=== PATIENT | female | born 1950 | race Caucasian/White ===

== ENCOUNTER 2021-05-28 13:28 | Outpatient (CLI) | payer MEDICARE, SELFPAY ==
--- NOTE | 2021-05-28 13:41 | MM_ITS ---
WS: [id number] BILATERAL DIGITAL SCREENING MAMMOGRAPHY WITH CAD CLINICAL INFORMATION: SCREENING HISTORY: Screening mammogram. No current complaints. COMPARISON: . TECHNIQUE: Bilateral CC and MLO views. FINDINGS: The breasts are composed of heterogeneous fibroglandular density tissue, which can limit the detectio n of small underlying mass lesions. No suspicious mass, asymmetry, calcifications, or architectural d istortion. No evidence of malignancy. MM/[place] [id number] IMPRESSION: BI-RADS: 1-Negative FOLLOW UP: 1 Year Follow-up Recommend return to annual screening mammography.
== END 2021-05-28 13:29 | disposition home or self-care (01) ==
LOC: RADSHAW 13:35
PROVIDERS: PCP Family Medicine; Visit Provider Family Medicine
DX: Z12.31 Encounter for screening mammogram for malignant neoplasm of breast (principal)
CPT/HCPCS: 77067

== ENCOUNTER → 2024-12-04 11:57 | Outpatient (BNVA) | payer MEDICARE, SELFPAY | PROVIDERS: PCP Family Medicine; Visit Provider Nurse Practitioner | DX: R07.9 Chest pain, unspecified (principal) | CPT/HCPCS: 80053; 80061; 85025 ==

== ENCOUNTER → 2024-12-11 09:37 | Outpatient (BNVA) | payer MEDICARE, SELFPAY | PROVIDERS: Visit Provider Nurse Practitioner | DX: M25.552 Pain in left hip (principal) | CPT/HCPCS: 73502 ==

== ENCOUNTER → 2025-01-10 09:35 | Outpatient (BNVA) | payer MEDICARE, SELFPAY | PROVIDERS: PCP Nurse Practitioner; Referring Provider Nurse Practitioner; Visit Provider Internal Medicine Cardiovascular Disease | DX: R06.09 Other forms of dyspnea (principal); R07.89 Other chest pain; R42 Dizziness and giddiness; E78.5 Hyperlipidemia, unspecified; R00.1 Bradycardia, unspecified; Z87.891 Personal history of nicotine dependence; R07.9 Chest pain, unspecified | CPT/HCPCS: 36415; 83880; 93005; 99204 ==

== ENCOUNTER 2025-02-11 07:22 | Outpatient (CLI) | payer MEDICARE, SELFPAY ==
--- NOTE | 2025-02-11 | ECG_ITS ---
[employer] Test Date: 2025-02-11 Pat Name: Maliha Alexander Department: Room: Gender: Female Metrologist: : 1950 Requested By: Colin Mcdonnell Order Number: [id number] Baca MD: Colin Mcdonnell M.D. Interpretive Statements Procedure: The patient was exercised by the Nikolas protocol. Vital signs and ECG findings: Baseline blood pressure was 160/86 with a heart rate of 58 bpm. The patient exercised for total of 7 minutes and 30 seconds reaching a maximum heart rate of 132 bpm which is 89% of maximal predicted heart rate. Patient achieved 10.2 METS. Above average exercise capacity for age. Maximum blood pressure was 158/86. At the end of recovery blood pressure was 163/70 with a heart rate of 74 bpm. Baseline EKG showed sinus bradycardia with a heart rate of 58 bpm nonspecific T wave flattening. There were no ST or T wave changes from baseline or arrhythmias with exercise. CONCLUSION: 1. Exercise capacity was mildly above average for age. 2. Heart rate response was appropriate. 3. Blood pressure response was appropriate. 4. No symptoms of angina during exercise. 5. Electrocardiogram portion of the stress test without evidence of ischemia. 6. Nuclear scan will be documented separately. Electronically Signed On 02-11-2025 22:21:19 CDT by Colin Mcdonnell M.D. [email or web address]
[2025-02-11 07:45] VITALS: BMI 22.3
--- NOTE | 2025-02-11 07:48 | NMCV_ITS ---
NM antonio perf SPECT r/s* [id number] Maliha Alexander Age: 74 Gender: F : 1950 Exam Date: 02/11/2025 08:16 Ordering Phys: Colin Mcdonnell MD ([email or web address]) Technologist: ANDREW Kaminski Exam Location: [facility] Indications: cp STRESS TEST Please see separate stress test report in [facility] for full findings IMAGE PROTOCOL Rest/Stress 1 Exercise Day Radiopharmaceutical Dose (mCi) Administration Site Administered by Rest: Tc-99m 10.7 IV Olya Villatoro, METER REPAIRER HELPER Sestamibi Stress:Tc-99m 32.8 IV Olya Villatoro, METER REPAIRER HELPER Sestamibi Rest: 11-Feb-2025 60 Discovery 630 Stress: 11-Feb-2025 15 Discovery 630 Radiopharmaceutical was injected at 85 % maximum heart rate. Images obtained in supine and prone position. SPECT RESULTS Technical Quality: Good Raw Data Analysis: Normal Image Corrections: No attenuation or motion correction applied Summed Stress Score: 4 Summed Rest Score: 2 Summed Difference Score: 2 PERFUSION FINDINGS There is a medium sized area of mildly decreased tracer counts in the mid and basal inferolateral wall that reverses on the resting images consistent with reversible ischemia. FUNCTIONAL RESULTS (calculated via Gated SPECT) Stress Image LV EF (%): 73 Stress EDV (mL):71 TID: 1.05 Stress ESV (mL):19 FUNCTIONAL FINDINGS: There is normal left ventricular systolic function. EF 73%. IMPRESSIONS 1. Medium sized area of mild reversible ischemia in the inferolateral wall. 2. There is normal left ventricular systolic function. EF 73%. Colin Mcdonnell MD, FACC (Electronically Signed) Final Date: 11 February 2025 13:28 S
[2025-02-11 09:08] VITALS: BP 163/70; PULSE 75
--- NOTE | 2025-02-11 12:45 | USCV_ITS ---
Maliha Alexander Age: 74 Gender: F : 1950 Exam Date: 02/11/2025 07:52 Ordering Phys: Colin Mcdonnell MD ([email or web address]) Technologist: Exam Location: [facility] Indication: sob cp BP: 120 / 70 HR: 65 Rhythm: Sinus Technical Quality: MEASUREMENTS (Male / Female) Normal Values 2D ECHO LV Diastolic Diameter PLAX 4.6 cm 4.2 - 5.9 / 3.9 - 5.3 cm IVS Diastolic Thickness 1.1 cm 0.6 - 1.0 / 0.6 - 0.9 cm IVS Systolic Thickness 1.7 cm LVPW Diastolic Thickness 1.0 cm 0.6 - 1.0 / 0.6 - 0.9 cm LVPW Systolic Thickness 1.5 cm LVOT Diameter 2.1 cm LV Ejection Fraction 2D Teich 66.6 % LV Ejection Fraction MOD 4C 67.1 % LV Ejection Fraction MOD 2C 71.2 % LV Ejection Fraction 2C AL 71.4 % LA Diameter 3.6 cm RA Systolic Volume 4C AL 22.6 ml RA Systolic Volume 4C MOD 21.2 ml LA Sys Volume AL 42.4 cm cubed LA Sys Volume Index AL 27.2 cm cubed/m squared Aorta at Sinotubular Diameter 2.2 cm IVC Diameter 1.7 cm M-MODE LA Ao Ratio MM 1.6 AV Cusp Separation MM 2.2 cm DOPPLER AV Peak Velocity 116.0 cm/s LVOT Peak Velocity 86.0 cm/s AV Area Cont Eq vti 2.0 cm squared AV Area Cont Eq pk 2.5 cm squared MV Peak Velocity 118.0 cm/s MV Area PHT 6.2 cm squared Mitral E to A Ratio 1.0 TV Peak Velocity 157.5 cm/s TR Peak Velocity 234.0 cm/s TR Peak Gradient 21.9 mmHg TV Peak E Velocity 74.0 cm/s PV Peak Velocity 133.0 cm/s FINDINGS Left Ventricle Normal left ventricular size, systolic function and wall thickness with no regional wall motion abnormality. Left ventricular ejection fraction is 67%. Normal left ventricular diastolic function. Right Ventricle Normal right ventricular size and systolic function. Right Atrium Normal right atrial size. Left Atrium Normal left atrial size. IA Septum Normal appearance of the interatrial septum. Mitral Valve Normal mitral valve structure. No mitral valve stenosis. Mild regurgitation. Aortic Valve Normal aortic valve structure. No aortic valve stenosis or regurgitation. Tricuspid Valve Normal tricuspid valve structure. No tricuspid valve stenosis. Mild regurgitation. Normal pulmonary pressure. Pulmonic Valve Normal pulmonic valve structure. No pulmonic valve stenosis or regurgitation. Pericardium No pericardial effusion. Aorta Normal diameter of the aortic root and ascending thoracic aorta. IVC Normal IVC diameter. CONCLUSIONS Normal left ventricular size, systolic function and wall thickness with no regional wall motion abnormality. Left ventricular ejection fraction is 67%. Normal left ventricular diastolic function. Normal right ventricular size and systolic function. Mild mitral valve regurgitation Mild tricuspid valve regurgitation Normal pulmonary pressure. Colin Mcdonnell MD, FACC (Electronically Signed) Final Date: 15 February 2025 17:02 S
== END 2025-02-11 07:23 | disposition home or self-care (01) ==
LOC: CDL 07:26
PROVIDERS: PCP Nurse Practitioner; Visit Provider Internal Medicine Cardiovascular Disease
DX: R07.9 Chest pain, unspecified (principal); I99.8 Other disorder of circulatory system; I34.0 Nonrheumatic mitral (valve) insufficiency; I36.1 Nonrheumatic tricuspid (valve) insufficiency
CPT/HCPCS: 36415; 78452; 93017; 93306; A9500

== ENCOUNTER 2025-02-18 10:15 | Outpatient (CLI) | payer MEDICARE, SELFPAY ==
[2025-02-18 11:45] LABS: Hematocrit 40.5 % (36-47); Hemoglobin 13.30 g/dL (11.27-16.99); Mean Corpuscular HGB Conc 32.8 g/dL (30-55); Mean Corpuscular Hemoglobin 31.3 pg (27-33); Mean Corpuscular Volume 95.3 fl (85-98); Nucleated Red Blood Cells % 0 %; Platelet Count 317 10^3/cmm (157-399); Red Blood Count 4.25 10^6/uL (3.85-5.65); White Blood Count 5.94 10^3/uL (3.29-11.43)
[2025-02-18 12:00] LABS: INR 0.84 (0.83-1.21)
[2025-02-18 12:07] LABS: Anion Gap 14.2 (5-19); Blood Urea Nitrogen 12 mg/dL (8-23); Calcium 9.8 mg/dL (8.5-10.5); Carbon Dioxide 28 mmol/L (22-29); Chloride 101 mmol/L (98-107); Glucose 89 mg/dL (65-115); Osmolality Calculated 287 mOsm/kg (285-295); Potassium 4.2 mmol/L (3.5-5.1); Sodium 139 mmol/L (136-145)
== END 2025-02-18 10:16 | disposition home or self-care (01) ==
PROVIDERS: PCP Nurse Practitioner; Visit Provider Internal Medicine Cardiovascular Disease
DX: R00.1 Bradycardia, unspecified (principal); R07.9 Chest pain, unspecified; R58 Hemorrhage, not elsewhere classified
CPT/HCPCS: 36415; 80048; 85025; 85610

== ENCOUNTER → 2025-02-28 11:04 | Outpatient (BNVA) | payer MEDICARE, SELFPAY | PROVIDERS: PCP Nurse Practitioner; Visit Provider Nurse Practitioner | DX: R10.9 Unspecified abdominal pain (principal) | CPT/HCPCS: 81000; 87086 ==

== ENCOUNTER 2025-03-04 05:49 | Outpatient (CLI) | payer MEDICARE, SELFPAY ==
[2025-03-04] VITALS (10 sets, daily range): BP systolic 124–181; BP diastolic 69–89; PULSE 62–76; RESP 14–24; TEMP 36.7; O2SAT 92–99; BMI 22.8
--- NOTE | 2025-03-04 06:00 | XACV_ITS ---
Exam Room: 2 Ht: 157 cm Wt: 57 kg BSA: 1.58 m2 Gender: Female : 1950 Any Known Allergies: Other Exam Priority: Routine Procedure(s): Procedure Description: Diagnostic procedure Procedure Description: Left Heart Catheterization Procedure Description: Left ventriculography Procedure Description: Coronary Angiography Renetta MORALEZ; Diagnostic Cath Status: Elective Diagnostic Findings * No disease noted in the Left Main, Left Anterior Descending, Right, or Circumflex coronary arteries. * Coronary angiography shows right dominance. Conclusions 1. Left main normal LAD normal LCx nondominant but normal RCA dominant vessel and normalVentricle ejection fraction 60%. No wall motion abnormality Indication: Abnormal stress test. 2. No disease noted in the Left Main, Left Anterior Descending, Right, or Circumflex coronary arteries. 3. All hayes are normal. 4. Normal left ventricular systolic function. Ejection fraction of 60%. Recommendations * Continue current medical management and risk factor modification. Diagnostic RX Recommendation: medical therapy and/or counseling Ventriculography Ejection Fraction: 60.0 % Pressures Phase:Rest AO : 106 / 63 ( 83 ) @ 8:09:00 AM 111 / 64 ( 87 ) @ 8:10:00 AM 131 / 59 ( 91 ) @ 8:15:00 AM 130 / 58 ( 90 ) @ 8:15:00 AM LV : 136 / -10 / 11 @ 8:14:00 AM 136 / -13 / 11 @ 8:15:00 AM 136 / -14 / 12 @ 8:15:00 AM Valves Phase:DefaultPhase AV : 5.0 @ 8:24:17 AM AV Mean Gradient: 8.0 @ 8:24:17 AM Clinical Evaluation EBL: 5mL-10mL Procedural Details Pre-Procedure Time Out. Identified patient by full name and date of as verbalized by the patient/guarantor. Does the consent match the physician's order: Yes. Accurate & Complete Informed Consent: Yes. Inpatient/Outpatient History & Physical on Chart: Yes. If H&P is completed, is and addenduem needed: No; If yes, is the addendum complete: N/A. Visualize and Verify Site with Patient/Guarantor: N/A. Relevant Radiology Images available: Yes. Pre-op teaching completed and patient verbalized understanding. The risks, benefits, and alternatives of sedation and/or procedure were discussed by physician. The patient agrees to continue. Procedure started. Physician arrived. [facility] Clinical Fraility Score: 3: Managing Well. Order Selector Indications: Suspected CAD. Chest Pain Symptom Assessment: Typical Angina Symptoms. Correct patient, site and procedure confirmed by cath team. Current diagnosis: Chest Pain. PERRLA. Strong, equal hand oil field technician bilaterally. Lungs clear x 5 lobes. IV Site on Arrival: 20 gauge in the right anticubital. IV Fluids: 0.9% NaCl at KVO. 0 mL infused prior to laborer [employer]. Pre Procedural Pulses: bilateral dorsalis pedis was 3+. Pre Procedural Pulses: bilateral posterior tibial was 2+. Pre Procedural Pulses: bilateral radial was 2+. Oxygen started at 2liters/min via nasal canula. right groin was prepped with chloroprep then draped in the usual sterile fashion. right radial was prepped with chloroprep then draped in the usual sterile fashion. Baseline sample Acquired. HR: 70 BPM. Physician scrubbed in. Immediate Pre-Procedure Time Out. Correct Patient: Yes; Correct Procedure: Yes; Correct Site: Yes; Correct Patient Position: Yes; Correct Supplies: Yes; Dried Flammable Prep: Yes; Blood Products Available: N/A;. Lidocaine 1% infiltrated to the right radial. Arterial access obtained. A 5 singaporean TIG catheter in over wire. Multiple views taken of left coronary artery. Catheter redirected to the RCA. Multiple views taken of right coronary artery. Catheter removed over the exchange wire. EDP Sample taken: LV 136/-11,11; HR: 72 BPM; SpO2: 99%. LV gram performed in MOSS @ 10 mL/second for a total of 30 mL. EDP Sample taken: LV 136/-14,11; HR: 74 BPM; SpO2: 100%. Pullback taken: LV 136/-15,12; AO 131/59(91); Mean: 8mmHg, Peak to Peak: 5mmHg, SEP: 21sec/min; HR: 73 BPM; SpO2: 100%. Catheter removed over the exchange wire. Post Procedure: Pulses reassessed and unchanged. PERRLA. Strong, equal hand oil field technician bilaterally. No VTE prophylaxis required. Medication's Wasted: Lidocaine 1% = 18 mL. Medication's Wasted: Nitro = 49.8 mcg. Medication's Wasted: Other = Fentanyl 50 mcg. Total IV fluids: 20 mL. Vital chart was stopped. A TR Band was successful obtaining hemostatsis at the Right Radial artery insertion site. Post-op diagnosis: Normal Coronaries. Complications: None. Estimated blood loss: 5mL-10mL. Responsiveness - Normal response to verbal stimuli; alert and oriented, PERRLA. Airway - Unaffected, no intervention required; spontaneous ventilation. Circulation: W/N/L, pulses unchanged. Nausea/Vomiting: No. Procedure completed. Patient transferred by wheelchair to CPRU. Access Site Site: Right Radial artery Sheath Size: 6 Fr Hemostasis Method: TR Band Hemostasis Success: Successful Procedure Medications Start: 7:55 AM Stop: 7:55 AM Medication: Versed 1 mg and Fentanyl 25 mcg Amount: 1 Route: I.V. Start: 7:59 AM Stop: 7:59 AM Medication: Versed 1 mg and Fentanyl 25 mcg Amount: 1 Route: I.V. Start: 8:05 AM Stop: 8:05 AM Medication: Nitrogylcerin Amount: 200 mcg Route: I.A. Start: 8:07 AM Stop: 8:07 AM Medication: Heparin Amount: 4000 units Route: I.V. I, the attending physician, have reviewed and verified all procedure medications. Yes, all medications given per verbal order History/Risk Factors Hypertension: No Dyslipidemia: Yes Peripheral Arterial Disease (PAD): No Myocardial Infarction (SC): No Obesity: No Renal Disease: No Tobacco Use: Never Prior Interventions PCI: No CABG: No Valve Surgery: No Report Signatures Finalized by Petty Jackson MD on 03/04/2025 09:00 AM
--- NOTE | 2025-03-04 07:53 | W.PM.OPSFHP ---
Same Day Surgery H&P Indication for Procedure/HPI DATE OF PROCEDURE: March 04, 2025 CHIEF COMPLAINT/INDICATIONFOR SURGICAL PROCEDURE: Chest pain shortness of breath PREOP DIAGNOSIS: Abnormal stress test/chest pain/dyspnea PLANNED PROCEDURE: Operation Date: 03/04/25 07:00 Proposed Procedures p Cardiac Catheterization - [facility] w/wo LV & Coros(Left) - Petty Jackson MD 74-year-old female past medical history significant for smoking hypertension hyperlipidemia underwent stress test for exertional shortness of breath chest pressure noted to have inferolateral ischemia on the stress test it is the reason she has been referred by Dr. Mcdonnell to us for left heart catheterization. Medications/Allergies* Home Medications ?Medication ?Instructions ?Recorded ?Confirmed ?Type levothyroxine 100 mcg capsule 100 mcg PO DAILY 12/04/24 03/04/25 History celecoxib 100 mg capsule (Celebrex) 100 mg PO BID 03/04/25 03/04/25 History Allergies/Adverse Reactions Allergy/AdvReac Type Severity Reaction Status Date / Time Influenza Virus Vaccines Allergy Intermediate ALGY-Difficulty Verified 03/04/25 06:35 Breathing Penicillins Allergy Intermediate ALGY-Hives Verified 03/04/25 06:35 erythromycin base (From Allergy ALGY-Hives Verified 03/04/25 06:36 E-Mycin) Current Medications: Generic Name Dose Route Start Last Admin Trade Name Freq PRN Reason Stop Dose Admin Sodium Chloride 1,000 mls @ 50 mls/hr 03/04/25 06:00 03/04/25 06:34 Sodium Chloride 0.9% IV 03/05/25 01:59 Not Given .Q20H ONE Pertinent History/Comorbid Conditions* Social History Smoking and tobacco/nicotine status: never used tobacco/nicotine Pertinent Exam Findings alert, oriented x 3, clear to auscultation bilaterally, regular rate & rhythm and operative site marked Conscious Sedation Assessment PATIENT ASSESSED PRIOR TO SEDATION, WITH NO CHANGE NOTED: Yes AIRWAY EVAL/ANESTHESIA PLAN: ASA II, Risks, benefits & alternatives of sedation and/or procedure discussed and Patient agrees to continue as planned Recommendations Risks and benefits of procedure reviewed and Patient/family agree to proceed Other Other Plans: All risk-benefit and alternative for the procedure has been explained to the patient. Patient understand 2% risk of stroke major bleed. Patient understand 5% risk of minor bleeding oozing infection hematoma contrast-induced nephropathy urgent or emergent vascular bypass surgery. Patient agrees to it and would like to proceed with it Coding Level of Care Code Acute Code for Chg Fwd
--- NOTE | 2025-03-04 08:28 | SUR.PHASEII ---
POST CATH NOTE Received patient from seed laboratory technician. Status post cardiac catheterization via the right radial approach. TR Band in place- 15 ml in the band. Site is hemostatic. Verbal post cath instuctions went over with the patient/family. They understood well. Informed to call for needs. Call light within reach. Vitals and assessments per flowsheet.
--- NOTE | 2025-03-04 08:47 | SUR.PHASEII ---
IV FLUIDS IV fluids set at 100 ml/hr post cath until discharge as ordered.
--- NOTE | 2025-03-04 10:15 | SUR.PHASEII ---
TR Band down. Verbal post cath instructions went over. Patient understood well.
== END 2025-03-04 11:18 | disposition home or self-care (01) ==
PROVIDERS: PCP Nurse Practitioner; Visit Provider Internal Medicine Cardiovascular Disease
DX: R94.39 Abnormal result of other cardiovascular function study (principal); R07.9 Chest pain, unspecified; R06.02 Shortness of breath; E78.5 Hyperlipidemia, unspecified; Z87.891 Personal history of nicotine dependence; I10 Essential (primary) hypertension
CPT/HCPCS: 36415; 93458; 99152; 99153; C1769; C1887; C1894; J1644; J2250; J3010; J3490; J7030; J9999; Q0163; Q9967

== ENCOUNTER → 2025-03-14 09:27 | Outpatient (BNVA) | payer MEDICARE, SELFPAY | PROVIDERS: PCP Nurse Practitioner; Visit Provider Internal Medicine Cardiovascular Disease | DX: R06.09 Other forms of dyspnea (principal); R42 Dizziness and giddiness; R07.89 Other chest pain; E78.5 Hyperlipidemia, unspecified; R00.1 Bradycardia, unspecified; R40.0 Somnolence; R03.0 Elevated blood-pressure reading, without diagnosis of hypertension; R07.9 Chest pain, unspecified | CPT/HCPCS: 72100; 85378; 99214 ==

== ENCOUNTER 2025-03-19 11:38 | Outpatient (CLI) | payer MEDICARE, SELFPAY ==
--- NOTE | 2025-03-19 12:00 | CTR_ITS ---
PROCEDURE INFORMATION: Exam: CTA Chest With Contrast Exam date and time: 03/19/2025 12:10 PM Age: 75 years old Clinical indication: Shortness of breath, chest pains, heaviness in chest. High d-dimer. TECHNIQUE: Imaging protocol: Computed tomographic angiography of the chest with contrast. Exam focused on the arteries. 3D rendering (Not supervised by radiologist): MIP and/or 3D reconstructed images were created by the technologist. Radiation optimization: All CT scans at this facility use at least one of these dose optimization techniques: automated exposure control; mA and/or kV adjustment per patient size (includes targeted exams where dose is matched to clinical indication); or iterative reconstruction. Contrast material: OMNI 350; Contrast volume: 100 ml; Contrast route: INTRAVENOUS (IV); COMPARISON: No relevant prior studies available. RADIATION DOSE METRICS: Total DLP (mGy-cm): 327.69 FINDINGS: Pulmonary arteries: No acute pulmonary thromboembolism. There are no persistent intraluminal filling defects within the subsegmental pulmonary arteries. Aorta: There is thoracic aortic atherosclerosis. There is no evidence for thoracic aortic aneurysm. There is no aortic dissection. Lungs: Unremarkable. No consolidation. No masses. Pleural spaces: Unremarkable. No pneumothorax. No pleural effusion. Heart: Unremarkable. No cardiomegaly. No pericardial effusion. Lymph nodes: Unremarkable. No enlarged lymph nodes. Bones/joints: Unremarkable. No acute fracture. Soft tissues: Unremarkable. CT/CT angio chest [id number] IMPRESSION: 1. No acute pulmonary thromboembolism or aortic dissection. 2. No evidence for pulmonary nodule or alveolar consolidation to suggest pneumonia.
[2025-03-19] MEDS: iohexol 350 mg/mL 500 mL Btl (per mL) IV (12:25)
== END 2025-03-19 11:39 | disposition home or self-care (01) ==
LOC: RAD 11:41
PROVIDERS: PCP Nurse Practitioner; Visit Provider Internal Medicine Cardiovascular Disease
DX: R06.02 Shortness of breath (principal)
CPT/HCPCS: 71275